=== PATIENT | female | born 1960 | race Caucasian/White ===

== ENCOUNTER 2024-02-06 09:44 | Emergency (ER) | payer OTHER ==
[2024-02-06 10:57] LABS: Absolute Neutrophil Ct (ANC) 4.67 x10^3/uL (1.56-6.13); BASOPHIL % 0.3 % (0.1-1.2); Basophil (Absolute #) 0.02 x10^3/uL (0.01-0.08); Eosinophil (Absolute #) 0.06 x10^3/uL (0.04-0.36); Hematocrit 34.5 % (34.1-44.9); Hemoglobin 9.5 g/dL (11.2-15.7); IMMATURE GRAN # 0.02 x10^3u/L (0.001-0.031); IMMATURE GRAN % 0.3 % (0.001-0.429); Lymphocyte (Absolute #) 1.15 x10^3/uL (1.18-3.74); Lymphocytes % 18.2 % (19.3-51.7); Mean Cell Volume 71.7 fL (79.4-94.8); Mean Corpuscular Hemoglobin 19.8 pg (25.6-32.2); Mean Corpuscular Hgb Concent. 27.5 g/dL (32.2-35.5); Mean Platelet Volume 9.7 fL (9.4-12.3); Monocyte (Absolute #) 0.39 x10^3/uL (0.24-0.86); Monocytes % 6.2 % (4.7-12.5); Platelet Count 368 x10^3/uL (182-369); Red Blood Count 4.81 x10^6/uL (3.93-5.22); Red Cell Distribution Width 19.6 % (11.7-14.4); White Blood Count 6.3 x10^3/uL (3.98-10.04)
[2024-02-06 11:04] LABS: Appearance Clear (Clear); Bacteria None Seen /HPF (None Seen); Bilirubin Negative (Negative); Blood Negative (Negative); Epithelial Cells None Seen /HPF (None Seen); Glucose, Urine Negative (Negative); Hyaline Casts NONE SEEN /LPF (0-2); Ketones Negative (Negative); Leukocyte Esterase Negative (Negative); Nitrite Negative (Negative); Ph 6.5 (4.6-8.0); Protein,Urine Dip Negative (Negative); RBC 0-2 /HPF (0-5); Specific Gravity 1.015 (1.005-1.030); Urobilinogen 0.2 mg/dL (0.2); WBC 0-2 /HPF (0-5)
[2024-02-06 11:10] LABS: ALBUMIN 4.7 g/dL (3.5-5.0); ANION GAP 16.6 MEQ/L (5-15); BILIRUBIN,TOTAL 0.5 mg/dL (0.2-1.3); Calcium 9.5 mg/dL (8.4-10.2); Creatinine 1 0.74 mg/dL (0.52-1.04); EST GLOMERULAR FILTRATION RATE 91.4 ML/MIN; Potassium 4.1 mmol/L (3.5-5.1); Total Protein 8.5 g/dL (6.3-8.2)
[2024-02-06 11:17] LABS: Slide Review 1 YES
--- NOTE | 2024-02-06 11:55 | XRAY ---
Indication: Blurred vision. Hypertension. Stroke. Multiple contiguous axial images obtained through the head without contrast. Comparison: None Normal appearing brain parenchyma, ventricles, and bony calvarium for patient's age. Visualized paranasal sinuses and mastoid air cells are clear. Impression: Normal CT head without contrast exam.
--- NOTE | 2024-02-06 12:38 | ERPHSYRPT ---
- History of Present Illness Time Seen by Provider: 02/06/24 10:00 Source: patient Exam Limitations: no limitations Patient Subjective Stated Complaint: Pt states "I have been out of meds for years and I need to find a place to live on my own and there are bed bugs bad there." Triage Nursing Assessment: Pt presented alert and oriented X 3, skin pwd. Pt ambulate with an upright steady gait, able to speak in clear full sentences. Pt friend stated she texted her on monday and was unable to understand the text. PT last known well unknown PT able to answer all questions at this time. Pt clothes put in hospital bag. Physician History: Patient is a 64-year-old female currently homeless stays with a friend presents to our ED with a another friend for evaluation. Patient has a history of glaucoma hypertension. Patient has been off of her medications for 5 years or more. Patient last saw her primary care doctor, Dr. Whittington 7 years ago. Patient's blood pressure observed to be elevated. Patient otherwise asymptomat ic. No chest pain or shortness of breath. No nausea vomiting or diaphoresis. Patient reports that her vision has been blurry for over 5 years. No acute change in visual acuity. Patient otherwise feels well. She voices no other complaints or concerns at this time. Portions of this note were created with voice recognition technology. There may be grammatical, spelling, punctuation or sound alike errors Timing/Duration: today Severity: moderate Modifying Factors: Improves With: nothing Associated Symptoms: denies symptoms Allergies/Adverse Reactions: cephalexin [From Keflex] Allergy (Verified 02/06/24 10:08) Rash Sulfa (Sulfonamide Antibiotics) Allergy (Verified 02/06/24 10:06) Home Medications: No Reportable Medications [No Reported Medications] 02/06/24 [History] Hx Tetanus, Diphtheria Vaccination/Date Given: No Hx Influenza Vaccination/Date Given: No Hx Pneumococcal Vaccination/Date Given: No Immunizations Up to Date: No Travel Risk - International Travel Have you traveled outside of the country in past 3 weeks: No - Emerging Infectious Disease Are you exhibiting symptoms associated with any current EIDs: No - Review of Systems Constitutional: No Symptoms, No Fever, No Chills Eyes: No Symptoms Ears, Nose, & Throat: No Symptoms, Other (Multiple carious teeth) Respiratory: No Symptoms, No Cough, No Dyspnea Cardiac: No Symptoms, No Chest Pain, No Edema, No Syncope Abdominal/Gastrointestinal: No Symptoms, No Abdominal Pain, No Nausea, No Vomiting, No Diarrhea Genitourinary Symptoms: No Symptoms, No Dysuria Musculoskeletal: No Symptoms, No Back Pain, No Neck Pain Skin: No Symptoms, No Rash Neurological: No Symptoms, No Dizziness, No Focal Weakness, No Sensory Changes Psychological: No Symptoms Endocrine: No Symptoms Hematologic/Lymphatic: No Symptoms Immunological/Allergic: No Symptoms All Other Systems: Reviewed and Negative - Past Medical History Pertinent Past Medical History: Yes Neurological History: No Pertinent History ENT History: Other Cardiac History: High Cholesterol, Hypertension Respiratory History: No Pertinent History Endocrine Medical History: No Pertinent History Musculoskeletal History: No Pertinent History GI Medical History: No Pertinent History History: No Pertinent History Psycho-Social History: Anxiety Female Reproductive Disorders: No Pertinent History Other Medical History: occular htn - Past Surgical History Past Surgical History: Yes Other Surgical History: finger - Social History Smoking Status: Never smoker Exposure to second hand smoke: No Drug Use: none - Social Determinants of Health Will the patient participate in the screening: Yes Do you worry about a steady place to live?: Yes Do you have any problems with any of the following?: Pest (bugs,ants,or mice) In the past 12 months,have you had to go without utilities?: No Transportation Issues: Yes Has anyone in your support network made you feel unsafe?: No Have you or anyone in your house had to go without enough: No - Nursing Vital Signs Nursing Vital Signs: Initial Vital Signs Temperature 97.6 F 02/06/24 09:54 Pulse Rate 82 02/06/24 09:54 Respiratory Rate 20 02/06/24 09:54 Blood Pressure 212/100 02/06/24 09:54 O2 Sat by Pulse Oximetry 100 02/06/24 09:54 Pain Scale Pain Intensity 0 - Physical Exam General Appearance: no apparent distress, alert Eye Exam: PERRL/EOMI, eyes nml inspection Ears, Nose, Throat Exam: normal ENT inspection, TMs normal, pharynx normal, moist mucous membranes Neck Exam: normal inspection, non-tender, supple, full range of motion Respiratory Exam: normal breath sounds, lungs clear, airway intact, No respiratory distress Cardiovascular Exam: regular rate/rhythm, normal heart sounds, normal peripheral pulses Gastrointestinal/Abdomen Exam: soft, normal bowel sounds, No tenderness, No mass Back Exam: normal inspection, normal range of motion, No CVA tenderness, No vertebral tenderness Extremity Exam: normal inspection, normal range of motion, pelvis stable Neurologic Exam: alert, oriented x 3, cooperative, normal mood/affect, nml cerebellar function, nml station & gait, sensation nml, No motor deficits Skin Exam: normal color, warm, dry, No rash Lymphatic Exam: No adenopathy SpO2 Interpretation: normal SpO2: 100 O2 Delivery: Room Air - Course Nursing assessment & vital signs reviewed: Yes Ordered Tests: Active Orders 24 hr Category Date Time Status Nurse Practitioner STAT Care 02/06/24 10:42 Active EKG-ER Only STAT Care 02/06/24 10:41 Active IV Insertion STAT Care 02/06/24 10:41 Active Pulse Oximetry (ED) STAT Care 02/06/24 10:41 Active ACO SDOH Referral ONCE Cons 02/06/24 10:07 Active HEAD WITHOUT CONTRAST [CT] Stat Exams 02/06/24 10:42 Completed CBC W DIFF Stat Lab 02/06/24 10:52 Completed CMP Stat Lab 02/06/24 10:52 Completed TROPONIN Q4H Lab 02/06/24 10:52 Completed TROPONIN Q4H Lab 02/06/24 14:45 Ordered TROPONIN Q4H Lab 02/06/24 18:45 Ordered UA W/RFX UR CULTURE Stat Lab 02/06/24 10:44 Completed Lab/Rad Data: Laboratory Result Diagrams 02/06/24 10:52 02/06/24 10:52 Laboratory Results 02/06/24 02/06/24 02/06/24 Range/Units 10:52 10:52 10:52 WBC 6.3 (3.98-10.04) x10^3/uL RBC 4.81 (3.93-5.22) x10^6/uL Hgb 9.5 L (11.2-15.7) g/dL Hct 34.5 (34.1-44.9) % MCV 71.7 L (79.4-94.8) fL MCH 19.8 L (25.6-32.2) pg MCHC 27.5 L (32.2-35.5) g/dL RDW 19.6 H (11.7-14.4) % Plt Count 368 (182-369) x10^3/uL MPV 9.7 (9.4-12.3) fL Gran % 74.0 H (34.0-71.1) % Immature Gran % (Auto) 0.3 (0.001-0.429) % Nucleat RBC Rel Count 0.0 (0.00-0.2) % Eos # (Auto) 0.06 (0.04-0.36) x10^3/uL Immature Gran # (Auto) 0.02 (0.001-0.031) x10^3u/L Absolute Lymphs (auto) 1.15 L (1.18-3.74) x10^3/uL Absolute Monos (auto) 0.39 (0.24-0.86) x10^3/uL Absolute Nucleated RBC 0.00 (0.00-0.012) x10^3u/L Lymphocytes % 18.2 L (19.3-51.7) % Monocytes % 6.2 (4.7-12.5) % Eosinophils % 1.0 (0.7-5.8) % Basophils % 0.3 (0.1-1.2) % Absolute Granulocytes 4.67 (1.56-6.13) x10^3/uL Basophils # 0.02 (0.01-0.08) x10^3/uL Sodium 140 (135-145) mmol/L Potassium 4.1 (3.5-5.1) mmol/L Chloride 105 (98-107) mmol/L Carbon Dioxide 22 (22-30) mmol/L Anion Gap 16.6 H (5-15) MEQ/L BUN 17 (7-17) mg/dL Creatinine 0.74 (0.52-1.04) mg/dL Estimated GFR 91.4 ML/MIN Glucose 105 (74-106) mg/dL Calcium 9.5 (8.4-10.2) mg/dL Total Bilirubin 0.50 (0.2-1.3) mg/dL AST 26 (14-36) U/L ALT 15 (0-35) U/L Alkaline Phosphatase 59 (38-126) U/L Troponin I < 0.012 (0.000-0.033) ng/mL Serum Total Protein 8.5 H (6.3-8.2) g/dL Albumin 4.7 (3.5-5.0) g/dL Urine Color (Yellow) Urine Appearance (Clear) Urine pH (4.6-8.0) Ur Specific [place] (1.005-1.030) Urine Protein (Negative) Urine Glucose (UA) (Negative) mg/dL Urine Ketones (Negative) Urine Blood (Negative) Urine Nitrite (Negative) Urine Bilirubin (Negative) Urine Urobilinogen (0.2) mg/dL Ur Leukocyte Esterase (Negative) U Hyaline Cast (Auto) (0-2) /LPF Urine Microscopic RBC (0-5) /HPF Urine Microscopic WBC (0-5) /HPF Ur Epithelial Cells (None Seen) /HPF Urine Bacteria (None Seen) /HPF Urine Culture Reflexed (NO) Slides for Path Review YES 02/06/24 Range/Units 10:44 WBC (3.98-10.04) x10^3/uL RBC (3.93-5.22) x10^6/uL Hgb (11.2-15.7) g/dL Hct (34.1-44.9) % MCV (79.4-94.8) fL MCH (25.6-32.2) pg MCHC (32.2-35.5) g/dL RDW (11.7-14.4) % Plt Count (182-369) x10^3/uL MPV (9.4-12.3) fL Gran % (34.0-71.1) % Immature Gran % (Auto) (0.001-0.429) % Nucleat RBC Rel Count (0.00-0.2) % Eos # (Auto) (0.04-0.36) x10^3/uL Immature Gran # (Auto) (0.001-0.031) x10^3u/L Absolute Lymphs (auto) (1.18-3.74) x10^3/uL Absolute Monos (auto) (0.24-0.86) x10^3/uL Absolute Nucleated RBC (0.00-0.012) x10^3u/L Lymphocytes % (19.3-51.7) % Monocytes % (4.7-12.5) % Eosinophils % (0.7-5.8) % Basophils % (0.1-1.2) % Absolute Granulocytes (1.56-6.13) x10^3/uL Basophils # (0.01-0.08) x10^3/uL Sodium (135-145) mmol/L Potassium (3.5-5.1) mmol/L Chloride (98-107) mmol/L Carbon Dioxide (22-30) mmol/L Anion Gap (5-15) MEQ/L BUN (7-17) mg/dL Creatinine (0.52-1.04) mg/dL Estimated GFR ML/MIN Glucose (74-106) mg/dL Calcium (8.4-10.2) mg/dL Total Bilirubin (0.2-1.3) mg/dL AST (14-36) U/L ALT (0-35) U/L Alkaline Phosphatase (38-126) U/L Troponin I (0.000-0.033) ng/mL Serum Total Protein (6.3-8.2) g/dL Albumin (3.5-5.0) g/dL Urine Color Yellow (Yellow) Urine Appearance Clear (Clear) Urine pH 6.5 (4.6-8.0) Ur Specific [place] 1.015 (1.005-1.030) Urine Protein Negative (Negative) Urine Glucose (UA) Negative (Negative) mg/dL Urine Ketones Negative (Negative) Urine Blood Negative (Negative) Urine Nitrite Negative (Negative) Urine Bilirubin Negative (Negative) Urine Urobilinogen 0.2 (0.2) mg/dL Ur Leukocyte Esterase Negative (Negative) U Hyaline Cast (Auto) NONE SEEN (0-2) /LPF Urine Microscopic RBC 0-2 (0-5) /HPF Urine Microscopic WBC 0-2 (0-5) /HPF Ur Epithelial Cells None Seen (None Seen) /HPF Urine Bacteria None Seen (None Seen) /HPF Urine Culture Reflexed NO (NO) Slides for Path Review - Progress Progress: improved Progress Note: 64-year-old female presents to our ED for an evaluation. Patient has been off of her ocular medication and blood pressure medication for over 5 years. Patient is currently homeless. We have contacted [facility] for assistance. Medically patient is stable for discharge. We will schedule an appointment for our patient with her primary care doctor Dr. Whittington. No indication for further workup at this time. Will discharge home. Patient has no complaints. Portions of this note were created with voice recognition technology. There may be grammatical, spelling, punctuation or sound alike errors Complexity of problem addressed is moderate acute complicated. No critical care time. Complex of data reviewed and analyzed is moderate. Test ordered test reviewed results analyzed and correlated clinically with history and physical exam. Risk of complication and or risk of morbidity/mortality of patient management is low. Vital stable. Time spent to discharge patient approximately 20 minutes. Plan of care established for shared decision making. No social determinants of health present to impede follow-up. Portions of this note were created with voice recognition technology. There may be grammatical, spelling, punctuation or sound alike errors 02/06/24 12:54 Counseled pt/family regarding: lab results, diagnosis, need for follow-up, rad results - Departure Departure Disposition: Home Clinical Impression: Microcytic anemia, Noncompliance with medication regimen Condition: Stable Critical Care Time: No Referrals: SUSANNA WHITTINGTON MD [Primary Care Provider] - Follow up/PCP as directed Instructions: Anemia, Possibly From [place], Adult ED Additional Instructions: Discharge/Care Plan GISSEL FARRIS was seen on 02/06/24 in the Emergency Room. The patient was counseled regarding Diagnosis,Lab results, Imaging studies, need for follow up and when to return to the Emergency Room. Prescriptions given: Discharge Note I have spoken with the patient and/or caregivers. I have explained the patient's condition, diagnosis and treatment plan based on the information available to me at this time. I have answered the patient's and/or caregiver's questions and addressed any concerns. The patient and/or caregivers have as good understanding of the patient's diagnosis, condition and treatment plan as can be expected at this point. The vital signs have been stable. The patient's condition is stable and appropriate for discharge from the emergency department. The patient will pursue further outpatient evaluation with the primary care physician or other designated or consulting physician as outlined in the discharge instructions. The patient and/or caregivers are agreeable to this plan of care and follow-up instructions have been explained in detail. The patient and/or caregivers have received these instruction. The patient/and or caregivers are aware that any significant change in condition or worsening of symptoms should prompt an immediate return to this or the closest emergency department or call 911.
[2024-02-06 13:30] VITALS: BP 188/102; PULSE 80; RESP 20; TEMP 97.8; O2SAT 98
== END 2024-02-06 13:30 | disposition home or self-care (01) ==
LOC: ED 09:44
DX: D50.9 Iron deficiency anemia, unspecified (principal); Z91.148 Patient's other noncompliance with medication regimen for other reason; H53.8 Other visual disturbances; E78.5 Hyperlipidemia, unspecified; I10 Essential (primary) hypertension; Z59.811 Housing instability, housed, with risk of homelessness; Z59.01 Sheltered homelessness; Z59.19 Other inadequate housing; Z59.82 Transportation insecurity
CPT/HCPCS: 36000; 36415; 70450; 80053; 81001; 84484; 85025; 93005; 93041; 94760; 99284